=== PATIENT | male | born 2000 | race Caucasian/White ===

== ENCOUNTER 2019-11-25 04:34 | Emergency (ER) | payer OTHER ==
[~2019-11-25] VITALS: Ht 180.3 cm; Wt 70.3 kg
[2019-11-25 04:44] VITALS: BP 142/72
[2019-11-25] MEDS ORDERED: MUPIROCIN1 GM TOP (04:46)
[2019-11-25] MEDS ORDERED: CLEOCIN HCL300 MG PO (04:46)
[2019-11-25] MEDS ORDERED: PERIDEX 0.12%473 M1 SWISH&SPIT (04:47)
== END 2019-11-25 05:00 | disposition home or self-care (01) ==
LOC: M.ERS 04:34
DX: S01.511A Laceration without foreign body of lip, initial encounter (principal); F17.210 Nicotine dependence, cigarettes, uncomplicated; Y04.0XXA Assault by unarmed brawl or fight, initial encounter; Y93.89 Activity, other specified; Y92.89 Other specified places as the place of occurrence of the external cause; Y99.8 Other external cause status

== ENCOUNTER 2020-03-10 00:03 | Emergency (ER) | payer OTHER ==
[~2020-03-10] VITALS: Ht 182.9 cm; Wt 69.8 kg
[~2020-03-10 00:03] MED LIST: CLEOCIN HCL300 MG PO; MUPIROCIN1 GM TOP; PERIDEX 0.12%473 M1 SWISH&SPIT
[2020-03-10] MEDS ORDERED: KEFLEX500 M1 PO (00:50)
[2020-03-10] MEDS ORDERED: MUPIROCIN1 GM TOP (00:50)
[2020-03-10] MEDS ORDERED: HYDROCODON-ACE1 EAC7 PO (00:50)
[2020-03-10] MEDS ORDERED: VALTREX1000 MG PO (00:50)
[2020-03-10 01:10] VITALS: BP 137/70
== END 2020-03-10 01:10 | disposition home or self-care (01) ==
LOC: M.ERS 00:03
DX: L02.512 Cutaneous abscess of left hand (principal); B00.1 Herpesviral vesicular dermatitis